=== PATIENT | male | born 1960 | race Caucasian/White ===

== ENCOUNTER 2021-06-05 08:38 | Emergency (ER) | payer BC ==
[2021-06-05 08:47] VITALS: RESP 18; TEMP 98
[2021-06-05] MEDS ORDERED: Acetaminophen-Codeine 300-30mg TAB PO STA (09:02)
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
--- NOTE | 2021-06-05 10:01 | XR ---
Lumbar spine HISTORY: Trauma and pain 3 views of the lumbar spine No comparisons Lumbar vertebral bodies show preserved height, alignment, and bone mineralization. Disc spaces are re markable for some disc height loss L5-S1 greater than L4-5. Is multilevel spondylosis. Sclerosis is p resent in the posterior elements. IMPRESSION: No fracture or subluxation. Degenerative disc disease and facet arthropathy.
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
[2021-06-05 10:51] VITALS: BP 122/93; PULSE 70
== END 2021-06-05 10:42 | disposition home or self-care (01) ==
LOC: EC 08:38
DX: S22.31XA Fracture of one rib, right side, initial encounter for closed fracture (principal); V93.33XA Fall on board other powered watercraft, initial encounter; Y93.I9 Activity, other involving external motion
CPT/HCPCS: 72100; 99284

== ENCOUNTER → 2023-11-25 | Outpatient (CLI) | payer BC ==
--- NOTE | 2023-11-25 17:07 | MR ---
EXAMINATION TYPE: MR brain and iac wo/w con DATE OF EXAM: 11/25/2023 COMPARISON: None HISTORY: Abnormal hearing test TECHNIQUE: Multiplanar, multisequence images of the brain and brainstem is performed without and with IV contras t, utilizing 9 mL intravenous Gadavist . High-resolution images through the posterior fossa were obta ined with and without contrast. FINDINGS: On the T1-weighted sagittal images, the midline structures including the craniovertebral junction rel ationships are normal. The ventricles, basal cisterns and sulci over the convexities within normal limits and there is no ma ss effect or shift of midline structures. No abnormal signal intensity is seen throughout the brain parenchyma on the FLAIR images. In the right frontal region adjacent to the anterior falx there is a 13 mm extra-axial mass with diff use enhancement consistent with a meningioma. The posterior fossa including the brainstem, fourth ventricle, cerebellar pontine angles and internal auditory canals and contents are normal and there is no mass or pathological enhancement. Based on diffusion-weighted imaging, there is no diffusion restriction or acute ischemic event. The intraorbital contents appear normal and symmetric. There is moderate chronic inflammatory change in the left maxillary sinus. The mastoid air cells are well aerated IMPRESSION: 1. No abnormality of the internal auditory canal or contents or of the cerebellar pontine angles. 2. 13 mm extra-axial mass in the right frontal region consistent with a meningioma. 3. No acute ischemic event 4. Moderate chronic inflammatory change of the left maxillary sinus. The mastoid air cells are well a erated
== END | disposition home or self-care (01) ==
LOC: RADMRIMAIN 13:25
PROVIDERS: ATTEND Otolaryngology
DX: G93.89 Other specified disorders of brain (principal); J34.89 Other specified disorders of nose and nasal sinuses; H90.A22 Sensorineural hearing loss, unilateral, left ear, with restricted hearing on the contralateral side
CPT/HCPCS: 70553; A9585

== ENCOUNTER → 2024-02-13 | Outpatient (CLI) | payer BC ==
--- NOTE | 2024-02-13 18:12 | MR ---
EXAMINATION TYPE: MR brain wo/w con DATE OF EXAM: 02/13/2024 4:36 PM CLINICAL INDICATION:Male, 63 years old with history of D32.0 BENIGN NEOPLASM OF CEREBRAL MENINGES; PH H, Abnormal prior MRI, please compare, history of thyroid cancer. Mass right frontal region. COMPARISON: 10/30/1993 TECHNIQUE: Multi planar, multi sequence imaging was performed through the brain including: T1, T2, In version recovery, susceptibility weighted imaging and gradient echo imaging and Diffusion weighted im aging. The patient was then given intravenous contrast and multi planar, T1 fat-saturation images wer e obtained. IV Contrast: 9 cc Gadavist FINDINGS: Right frontal region extra-axial 14 x 12 mm mass with homogenous postcontrast enhancement and dural t ail noted. There is minimal extension into the diploic space. The corrigan-white junctions, ventricular system, basal cisterns appear unremarkable. Diffusion-weighted imaging shows no evidence of restricted diffusion to suggest acute/subacute infarct. Intracranial ar terial flow voids are maintained. Midline structures show no abnormality. Scattered foci of high T2 s ignal intensity are seen within the periventricular white matter. The susceptibility weighted images do not reveal any evidence for micro-hemorrhage. After administration of gadolinium, no additional ab normal enhancement is seen. The bone marrow signal is within normal limits. Paranasal sinuses and mastoid air cells: No significant paranasal sinus disease. Visualized orbits: Orbital contents are intact. IMPRESSION: 1. Right frontal extra-axial lesion most compatible with meningioma is similar to prior on 11/25/2023 . 2. No evidence of intracranial mass, acute/subacute infarct, or additional abnormal enhancement. 3. Nonspecific white matter changes, likely related to small vessel ischemic disease.
== END | disposition home or self-care (01) ==
LOC: RADMRIMAIN 15:30
PROVIDERS: ATTEND Neurological Surgery
DX: G93.89 Other specified disorders of brain (principal); D32.0 Benign neoplasm of cerebral meninges; Z85.850 Personal history of malignant neoplasm of thyroid
CPT/HCPCS: 70553; A9585